=== PATIENT | female | born 1995 ===

== ENCOUNTER 2017-02-16 11:57 | Emergency (ER) | payer MEDICAID, OTHER ==
[2017-02-16 12:09] VITALS: BP 139/89; PULSE 85; RESP 18; TEMP 97; O2SAT 98
--- NOTE | 2017-02-16 13:06 | ED PDOC ---
HPI: General Adult Time Seen by Provider: 02/16/17 12:14 Chief Complaint (Nursing): GI Problem Chief Complaint (Provider): GI Problem History Per: Patient History/Exam Limitations: no limitations Onset/Duration Of Symptoms: Days (x2 years), Worse Since (x2 weeks ago) Have you had recent travel within the past 21 days to any of the following countries: [place], [place], [place] or [place]?: No Current Symptoms Are (Timing): Still Present Severity: Moderate Additional Complaint(s): Izzy Laguerre is a 21 year old female, with no pertinent past medical history , who presents to the emergency department with complaints that body has never gotten used to her control implant, Nexplanon, that the patient has been experiencing for the past 2 years; however, her symptoms worsened 2 weeks ago, prompting her visit to the ED. Patient reports stress greatly exacerbates her symptoms. Associated nausea (over the past 2 days), generalized weakness, a loss of appetite, an acne breakout, and anxiety are currently present. Denies a chance of . 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 PMD: none specified Past Medical History Reviewed: Historical Data, Nursing Documentation, Vital Signs Vital Signs: Last Vital Signs Temp 97 F L 02/16/17 12:05 Pulse 85 02/16/17 12:05 Resp 18 02/16/17 12:05 BP 139/89 02/16/17 12:05 Pulse Ox 98 02/16/17 13:20 - Medical History PMH: Gall Bladder Disease - Surgical History Surgical History: Cholecystectomy - Family History Family History: States: No Known Family Hx - Social History Current smoker - smoking cessation education provided: Yes (>10 cigarettes daily ) Alcohol: None Drugs: Denies - Home Medications Home Medications: Ambulatory Orders Medication Instructions Recorded No Known Home Med [No Known Home 04/17/15 Med] - Allergies Allergies/Adverse Reactions: Allergies Allergy/AdvReac Type Severity Reaction Status Date / Time No Known Allergies Allergy Verified 02/16/17 12:05 Review of Systems ROS Statement: Except As Marked, All Systems Reviewed And Found Negative Gastrointestinal: Positive for: Nausea Neurological: Positive for: Weakness Psych: Positive for: Anxiety Physical Exam - Reviewed Nursing Documentation Reviewed: Yes Vital Signs Reviewed: Yes - Physical Exam Appears: Positive for: Non-toxic, No Acute Distress Head Exam: Positive for: ATRAUMATIC, NORMOCEPHALIC Skin: Positive for: Normal Color, Warm, Dry Cardiovascular/Chest: Positive for: Regular Rate, Rhythm. Negative for: Murmur Respiratory: Positive for: Normal Breath Sounds. Negative for: Respiratory Distress Gastrointestinal/Abdominal: Positive for: Normal Exam, Soft. Negative for: Tenderness Extremity: Positive for: Normal ROM. Negative for: Tenderness Neurologic/Psych: Positive for: Alert, Oriented - ECG O2 Sat by Pulse Oximetry: 98 (RA) Pulse Ox Interpretation: Normal Medical Decision Making Medical Decision Makin:14 Initial Plan: Preg test (-), Request fro Contraceptive implant removal 12:30 Provider prompted patient to follow up with her OB-P[employer]ER [employer] [employer]INE OPERATOR. Scribe Attestation: Documented by Uriel Casas, acting as a scribe for NIKI Wolf. Provider Scribe Attestation: All medical record entries made by the Scribe were at my direction and personally dictated by me. I have reviewed the chart and agree that the record accurately reflects my personal performance of the history, physical exam, medical decision making, and the department course for this patient. I have also personally directed, reviewed, and agree with the discharge instructions and disposition. Disposition - Clinical Impression Clinical Impression: Encounter for Nexplanon removal - Patient ED Disposition Is Patient to be Admitted: No - Disposition Referrals: [facility] [Outside] [facility] [Outside] Disposition: Routine/Home Disposition Time: 13:21 Condition: STABLE Instructions: Removal of Contraceptive Implant (GEN) - POA Present On Arrival: None
== END 2017-02-16 13:29 | disposition home or self-care (01) ==
LOC: H.ER 11:57
DX: R53.1 Weakness (principal); Z30.49 Encounter for surveillance of other contraceptives; F41.9 Anxiety disorder, unspecified; F17.210 Nicotine dependence, cigarettes, uncomplicated

== ENCOUNTER 2017-05-14 04:07 | Emergency (ER) | payer OTHER ==
[2017-05-14 04:17] VITALS: BP 124/81; PULSE 85; RESP 16; TEMP 98; O2SAT 96
[2017-05-14] MEDS ORDERED: Sodium Chloride 0.9% 1,000 ML IV STA (04:35)
--- NOTE | 2017-05-14 04:38 | ED PDOC ---
HPI: Abdomen Time Seen by Provider: 05/14/17 04:19 Chief Complaint (Nursing): Abdominal Pain Chief Complaint (Provider): Abdominal pain, flank pain History Per: Patient History/Exam Limitations: no limitations Onset/Duration Of Symptoms: Hrs (1), Waxing/Waning Outside of [place] travel?: No Current Symptoms Are (Timing): Still Present Location Of Pain/Discomfort: LUQ, LLQ Quality Of Discomfort: Cramping, Pressure, "Pain" Associated Symptoms: Back Pain, Urinary Symptoms Additional History Per: Patient Additional Complaint(s): The patient is a 21yo female, with past medical history of kidney stones, cholecystectomy, presents to the ED for evaluation of left upper and lower quadrant abdominal pain, radiating to her left back. Patient reports the pain is waxing and waning and has been present for the past hour with associated 4x episodes of vomiting. Patient reports she experienced similar pain when she was diagnosed with a kidney stone in the past. She also reports a sensation of pressure with urination but denies any dysuria, hematuria. Patient denies any fever, chills, diarrhea and abnormal vaginal bleeding. Patient offers no additional medical complaints. Of note, patient reports she had an "IUD" removed 2 days ago and feels the pain may also be related to that. Upon further questioning, patient states she had an implant on her arm ( Nexplanon). PCP: Dr. Simmons Abnormal Vaginal Bleeding: No Past Medical History Reviewed: Historical Data, Nursing Documentation, Vital Signs Vital Signs: Last Vital Signs Temp 98.0 F 05/14/17 04:10 Pulse 85 05/14/17 04:10 Resp 16 05/14/17 04:10 BP 124/81 05/14/17 04:10 Pulse Ox 96 05/14/17 05:55 - Medical History PMH: Gall Bladder Disease, Kidney Stones - Surgical History Surgical History: Cholecystectomy - Family History Family History: States: Unknown Family Hx - Home Medications Home Medications: Ambulatory Orders Medication Instructions Recorded Ciprofloxacin HCl [Cipro] 500 mg PO BID #14 tablet 05/14/17 Tamsulosin [Flomax] 0.4 mg PO DAILY #14 cap 05/14/17 oxyCODONE/Acetaminophen [Percocet 1 ea PO Q6 PRN #15 tab 05/14/17 5/325 mg Tab] - Allergies Allergies/Adverse Reactions: Allergies Allergy/AdvReac Type Severity Reaction Status Date / Time No Known Allergies Allergy Verified 02/16/17 12:05 Review of Systems ROS Statement: Except As Marked, All Systems Reviewed And Found Negative Constitutional: Negative for: Fever, Chills Gastrointestinal: Positive for: Nausea, Vomiting, Abdominal Pain. Negative for : Diarrhea Genitourinary Female: Positive for: Other (pressure). Negative for: Dysuria, Frequency, Hematuria, Vaginal Bleeding Musculoskeletal: Positive for: Back Pain Physical Exam - Reviewed Nursing Documentation Reviewed: Yes Vital Signs Reviewed: Yes - Physical Exam Appears: Positive for: Non-toxic, Uncomfortable Head Exam: Positive for: ATRAUMATIC, NORMAL INSPECTION, NORMOCEPHALIC Skin: Positive for: Normal Color, Warm Eye Exam: Positive for: Normal appearance Neck: Positive for: Normal, Supple Cardiovascular/Chest: Positive for: Regular Rate, Rhythm Respiratory: Positive for: Normal Breath Sounds. Negative for: Respiratory Distress Gastrointestinal/Abdominal: Positive for: Soft, Tenderness (left upper and lower quadrant tenderness). Negative for: Mass, Guarding, Rebound Back: Positive for: L CVA Tenderness Extremity: Negative for: Deformity, Swelling Neurologic/Psych: Positive for: Alert, Oriented - Laboratory Results Result Diagrams: 05/14/17 04:42 05/14/17 04:42 - ECG O2 Sat by Pulse Oximetry: 96 - Progress Re-evaluation Time: 05:30 Condition: Re-examined, Improved Medical Decision Making Medical Decision Making: Time: 0435 Impression: Flank pain, left lower quadrant pain Differential: Renal colic, UTI, ovarian cyst, other causes considered but not listed Plan: * CT AP w/o contrast * Labs * Toradol 30 mg IV * Zofran 4 mg IV * IV Fluids * Reassess Time: 0534 CT AP IMPRESSION: 1. LEFT mid ureteral calculus with mild hydroureteronephrosis. 2. Incidental/non-acute findings are described above. Scribe Attestation: Documented by Carli Mccarty, acting as a scribe for Nikhil Belle MD. Provider Scribe Attestation: All medical record entries made by the Scribe were at my direction and personally dictated by me. I have reviewed the chart and agree that the record accurately reflects my personal performance of the history, physical exam, medical decision making, and the department course for this patient. I have also personally directed, reviewed, and agree with the discharge instructions and disposition. Disposition - Clinical Impression Clinical Impression: Ureteral calculus, right - Patient ED Disposition Is Patient to be Admitted: No Doctor Will See Patient In The: Office Counseled Patient/Family Regarding: Studies Performed, Diagnosis, Need For Followup - Disposition Referrals: River Simmons Jr., MD [Primary Care Provider] - Arnaldo Yang MD [Medical Doctor] - Disposition: Routine/Home Disposition Time: 05:49 Condition: GOOD Additional Instructions: Return for worsening. Take medications as instructed. Follow up with your PCP 2- 3 days. Prescriptions: Ciprofloxacin HCl [Cipro] 500 mg PO BID #14 tablet oxyCODONE/Acetaminophen [Percocet 5/325 mg Tab] 1 ea PO Q6 PRN #15 tab PRN Reason: Pain, Severe (8-10) Tamsulosin [Flomax] 0.4 mg PO DAILY #14 cap Instructions: Kidney Stones (ED), Renal Colic (ED) Forms: [facility] ED School/Work Excuse
[2017-05-14 04:46] LABS: BASO # 0.1 K/uL (0.0-0.2); EOS # 0.2 K/uL (0.0-0.7); EOS % 2.1 % (0.0-4.0); HEMOGLOBIN 14.1 g/dL (12.0-16.0); LYMPH # 2.1 K/uL (1.0-4.3); LYMPH % 23.1 % (20.0-40.0); MEAN CELL VOLUME 90.1 fl (81.0-99.0); MEAN CORPUSCULAR HEMOGLOBIN 30.1 pg (27.0-31.0); MEAN CORPUSCULAR HGB CONC 33.4 g/dL (33.0-37.0); MEAN PLATELET VOLUME 8.6 fl (7.2-11.7); MONO # 0.6 K/uL (0.0-0.8); MONO % 6.4 % (0.0-10.0); NEUT # 6.1 K/uL (1.8-7.0); NEUT % 67.4 % (50.0-75.0); RBC 4.68 Mil/uL (3.80-5.20); RED CELL DISTRIBUTION WIDTH 12.9 % (11.5-14.5)
[2017-05-14 04:53] LABS: BLOOD UREA NITROGEN 18 mg/dl (7-17); CALCIUM 9.5 mg/dL (8.4-10.2); GFR AFRICAN-AMERICAN > 60; GFR NON-AFRICAN AMERICAN > 60
--- NOTE | 2017-05-14 05:15 | CT ---
EXAM: CT Abdomen and Pelvis Without Intravenous Contrast CLINICAL HISTORY: 21 years old, female; Pain; Abdominal pain; Flank; Left; Prior surgery; Surgery date: 6+ months; Surgery type: Cholecystectomy; Additional info: Left flank pain TECHNIQUE: Axial computed tomography images of the abdomen and pelvis without intravenous contrast. This CT exam was performed using one or more of the following dose reduction techniques: automated exposure control, adjustment of the mA and/or kV according to patient size, and/or use of iterative reconstruction technique. Coronal and sagittal reformatted images were created and reviewed. COMPARISON: No relevant prior studies available. FINDINGS: Lower thorax: No acute findings. ABDOMEN: Liver: Unremarkable. Gallbladder and bile ducts: Cholecystectomy. No ductal dilation. Pancreas: Unremarkable. No ductal dilation. Spleen: No splenomegaly. Adrenals: No mass. Kidneys and ureters: No renal calculi. Mild pelvocaliectasis of LEFT kidney. Mildly dilated LEFT proximal to mid ureter. 0.6 x 0.4 x 0.3 cm calculus within LEFT mid ureter. Stomach and bowel: Segmental areas of underdistention of colon. No definite mural thickening. No obstruction. Appendix: Normal caliber. No inflammation. PELVIS: Bladder: Unremarkable. No stones. Reproductive: Unremarkable as visualized. ABDOMEN and PELVIS: Intraperitoneal space: No significant fluid collection. No free air. Bones/joints: No acute fracture. Soft tissues: Tiny umbilical hernia containing fat. Vasculature: Retroaortic LEFT renal vein. No aneurysm. Lymph nodes: No pathologically enlarged lymph nodes. IMPRESSION: 1. LEFT mid ureteral calculus with mild hydroureteronephrosis. 2. Incidental/non-acute findings are described above.
== END 2017-05-14 05:59 | disposition home or self-care (01) ==
LOC: H.ER 04:07
DX: N20.1 Calculus of ureter (principal); Z90.49 Acquired absence of other specified parts of digestive tract

== ENCOUNTER 2017-06-27 12:07 | Emergency (ER) | payer OTHER ==
[2017-06-27 12:25] VITALS: BP 122/86; PULSE 97; RESP 18; TEMP 98.9; O2SAT 99
[2017-06-27] MEDS ORDERED: Sodium Chloride 0.9% 1,000 ML IV STA (12:49)
--- NOTE | 2017-06-27 12:53 | ED PDOC ---
HPI: Female Pain Time Seen by Provider: 06/27/17 12:39 Chief Complaint (Nursing): Female Genitourinary Chief Complaint (Provider): renal colic History Per: Patient History/Exam Limitations: no limitations Additional Complaint(s): 21yo F in ED for eval of LLQ pain radiating to back, urinary bladder fullness with trickling of urine x couple of hours, however pt admits to hx of renal stones about 1 month ago-was told she would pass it and thought she did since she a a period of no pain. pt denies vomiting fever chills hemturia malasie. Past Medical History Reviewed: Historical Data, Nursing Documentation, Vital Signs Vital Signs: Last Vital Signs Temp 98.9 F 06/27/17 12:22 Pulse 97 H 06/27/17 12:22 Resp 18 06/27/17 12:22 BP 122/86 06/27/17 12:22 Pulse Ox 99 06/27/17 12:22 - Medical History PMH: Gall Bladder Disease, Kidney Stones - Surgical History Surgical History: Cholecystectomy - Family History Family History: States: Unknown Family Hx - Home Medications Home Medications: Ambulatory Orders Medication Instructions Recorded Ciprofloxacin HCl [Cipro] 500 mg PO BID #14 tablet 05/14/17 Tamsulosin [Flomax] 0.4 mg PO DAILY #14 cap 05/14/17 oxyCODONE/Acetaminophen [Percocet 1 ea PO Q6 PRN #15 tab 05/14/17 5/325 mg Tab] Acetaminophen/Oxycodone Hydr 1 tab PO TID PRN #12 tab 06/27/17 [Oxycodone and Acetaminophen 325 mg-2.5 mg] Nitrofurantoin Macrocrystals 100 mg PO BID #14 cap 06/27/17 [Macrobid] Tamsulosin HCl [Flomax] 0.4 mg PO DAILY #12 cap.er.24h 06/27/17 - Allergies Allergies/Adverse Reactions: Allergies Allergy/AdvReac Type Severity Reaction Status Date / Time No Known Allergies Allergy Verified 02/16/17 12:05 Review of Systems ROS Statement: Except As Marked, All Systems Reviewed And Found Negative Constitutional: Negative for: Fever, Chills, Weakness, Malaise Gastrointestinal: Positive for: Abdominal Pain. Negative for: Nausea, Vomiting Genitourinary Female: Positive for: Dysuria. Negative for: Hematuria, Vaginal Discharge, Vaginal Bleeding, Pelvic Pain Physical Exam - Reviewed Nursing Documentation Reviewed: Yes Vital Signs Reviewed: Yes - Physical Exam Appears: Positive for: Well, Non-toxic, No Acute Distress Skin: Positive for: Normal Color, Warm, DRY Cardiovascular/Chest: Positive for: Regular Rate, Rhythm Respiratory: Positive for: CNT, Normal Breath Sounds Gastrointestinal/Abdominal: Positive for: Normal Exam, Bowel Sounds, Soft, Tenderness (LLQ ternderness. ) Back: Negative for: L CVA Tenderness, R CVA Tenderness Extremity: Positive for: Normal ROM Neurologic/Psych: Positive for: Alert, Oriented - Laboratory Results Result Diagrams: 06/27/17 13:00 06/27/17 13:00 - ECG O2 Sat by Pulse Oximetry: 99 - Progress ED Course And Treament: will get CT scan of abd/pelvis r/o renal stone. Medical Decision Making Medical Decision Making: Renal stone is moving further. pt reassessed and no longer in pain. PT advised since renal stone is moving further out of body form mid ureter to UVJ and without WBC, fever, severe intractable pain that pt can f.u with urology outpt d/c on abx, flomax and pain control. Disposition - Clinical Impression Clinical Impression: Renal stone - Patient ED Disposition Is Patient to be Admitted: No Counseled Patient/Family Regarding: Studies Performed, Diagnosis, Need For Followup, Rx Given - Disposition Referrals: [facility] [Outside] Lyle Burns MD [Medical Doctor] - Geo Leigh Jr., MD [Staff Provider] - Disposition: Routine/Home Disposition Time: 17:17 Condition: STABLE Additional Instructions: it is imperative that you see a urologist. Prescriptions: Acetaminophen/Oxycodone Hydr [Oxycodone and Acetaminophen 325 mg-2.5 mg] 1 tab PO TID PRN #12 tab PRN Reason: Pain, Severe (8-10) Nitrofurantoin Macrocrystals [Macrobid] 100 mg PO BID #14 cap Tamsulosin HCl [Flomax] 0.4 mg PO DAILY #12 cap.er.24h Instructions: Kidney Stones (ED) Forms: [facility] ([place]enian), [facility] ED School/Work Excuse
[2017-06-27 13:11] LABS: BASO # 0.1 K/uL (0.0-0.2); BASO % 0.9 % (0.0-2.0); EOS # 0.1 K/uL (0.0-0.7); EOS % 1.5 % (0.0-4.0); HEMATOCRIT 42.7 % (34.0-47.0); LYMPH # 2.9 K/uL (1.0-4.3); LYMPH % 34.5 % (20.0-40.0); MEAN CELL VOLUME 90.3 fl (81.0-99.0); MEAN CORPUSCULAR HGB CONC 33.2 g/dL (33.0-37.0); MEAN PLATELET VOLUME 9.1 fl (7.2-11.7); MONO # 0.6 K/uL (0.0-0.8); MONO % 6.5 % (0.0-10.0); NEUT # 4.8 K/uL (1.8-7.0); NEUT % 56.6 % (50.0-75.0); RED CELL DISTRIBUTION WIDTH 12.5 % (11.5-14.5); WHITE BLOOD COUNT 8.5 K/uL (4.8-10.8)
[2017-06-27 13:19] LABS: ALB/GLOB RATIO 1.5 (1.0-2.1); ALKALINE PHOSPHATASE 77 U/L (38-126); ALT/SGPT 40 U/L (9-52); AST/SGOT 20 U/L (14-36); BILIRUBIN,TOTAL 0.8 mg/dl (0.2-1.3); BLOOD UREA NITROGEN 12 mg/dl (7-17); CARBON DIOXIDE 27 mmol/L (22-30); CHLORIDE 103 mmol/L (98-107); GFR AFRICAN-AMERICAN > 60; GLUCOSE,RANDOM 87 mg/dL (65-105); POTASSIUM 3.8 MMOL/L (3.6-5.0); SODIUM 140 mmol/l (132-148); TOTAL PROTEIN 7.7 G/DL (6.3-8.2)
[2017-06-27 13:22] LABS: RBC URINE 76 /hpf (0-3); URINE BILIRUBIN NEGATIVE (NEGATIVE); URINE BLOOD SMALL (NEGATIVE); URINE COLOR YELLOW (YELLOW); URINE GLUCOSE (UA) NEG (Normal); URINE KETONE NEGATIVE (NEGATIVE); URINE LEUKOCYTE ESTERASE NEG Leu/uL (Negative); URINE PROTEIN NEGATIVE (NEGATIVE); WBC URINE 1 /hpf (0-5)
--- NOTE | 2017-06-27 16:45 | CT ---
PROCEDURE: CT abdomen pelvis dated 06/27/2017. HISTORY: LLQ pain radiatiting to back COMPARISON: Comparison made with prior study 05/14/2017 TECHNIQUE: Contiguous axial images of the abdomen and pelvis performed without oral or intravenous contrast material coronal and sagittal reformats l and Sagittal reformats generated. Radiation dose: Total exam DLP = 1138.12 mGy-cm. This CT exam was performed using one or more of the following dose reduction techniques: Automated exposure control, adjustment of the mA and/or kV according to patient size, and/or use of iterative reconstruction technique. FINDINGS: LOWER THORAX: Lung bases clear. No infiltrate effusion or basilar pneumothorax. Heart size normal. No significant pericardial effusion. Tiny hiatal hernia. LIVER: Liver exhibits normal size measuring approximately 17 cm in CC dimension. No obvious hepatic mass or collection. GALLBLADDER AND BILE DUCTS: Again noted are changes of cholecystectomy with metallic clips in the gallbladder fossa PANCREAS: . Pancreas appears grossly unremarkable without mass collection or calcification. SPLEEN: Spleen exhibits normal size and attenuation pattern without mass collection or calcification. ADRENALS: No adrenal lesions. KIDNEYS AND URETERS: Re- demonstrated is mild left-sided hydronephrosis secondary to an approximately 4.85 mm elliptical shaped calcification in the left UVJ region. This could represent migration of the previously noted mid ureteral calculus on prior study. Clinical correlation recommended. BLADDER: Urinary bladder appears incompletely distended. No evidence of intraluminal urinary bladder calculi. REPRODUCTIVE: Uterus appears unremarkable. Small calcified pelvic phlebolith adjacent to the of left lateral border of the uterus. APPENDIX: Normal-appearing appendix best seen on axial image number [id number]. No periappendiceal inflammatory changes. BOWEL: Evaluation of the bowel is limited due to its the lack of oral contrast. Stomach is distended with food debris liquid and air. Visualized loops of small bowel exhibit normal contour and caliber. No evidence of acute mechanical small bowel obstruction. Moderate amount of stool is seen throughout the ascending colon suggesting mild fecal retention. The no abnormal mural wall thickening. PERITONEUM: Unremarkable. No fluid collection. No free air. Small fat containing umbilical hernia. LYMPH NODES: Unremarkable. No enlarged lymph nodes. VASCULATURE: No evidence of abdominal aortic or iliac artery aneurysms. BONES: Osseous structures appear unremarkable OTHER FINDINGS: None. IMPRESSION: There is an approximately 4.85 mm calculus of within the left UVJ region with mild left-sided hydronephrosis. Status post cholecystectomy. See above discussion for additional details and findings.
== END 2017-06-27 17:36 | disposition home or self-care (01) ==
LOC: H.ER 12:07
DX: N20.0 Calculus of kidney (principal)
CPT/HCPCS: 74176; 80053; 81003; 81025; 85025; 96374; 99285; J1885; J7040

== ENCOUNTER 2017-11-16 08:46 | Emergency (ER) | payer OTHER ==
[2017-11-16 08:56] VITALS: BP 134/78; PULSE 80; TEMP 97; O2SAT 100
[2017-11-16 10:31] LABS: BASO % 0.6 % (0.0-2.0); EOS # 0.1 K/uL (0.0-0.7); EOS % 1.9 % (0.0-4.0); HEMOGLOBIN 14.4 g/dL (12.0-16.0); LYMPH # 1.9 K/uL (1.0-4.3); LYMPH % 24.7 % (20.0-40.0); MEAN CELL VOLUME 89.3 fl (81.0-99.0); MEAN CORPUSCULAR HEMOGLOBIN 30.2 pg (27.0-31.0); MEAN CORPUSCULAR HGB CONC 33.8 g/dL (33.0-37.0); MEAN PLATELET VOLUME 8.3 fl (7.2-11.7); MONO # 0.6 K/uL (0.0-0.8); MONO % 7.2 % (0.0-10.0); NEUT % 65.6 % (50.0-75.0); NRBC % 0.2 % (0.0-0.0); RBC 4.77 Mil/uL (3.80-5.20); RED CELL DISTRIBUTION WIDTH 12.9 % (11.5-14.5); WHITE BLOOD COUNT 7.6 K/uL (4.8-10.8)
[2017-11-16 10:50] LABS: ALB/GLOB RATIO 1.3 (1.0-2.1); ALBUMIN 4.3 g/dL (3.5-5.0); ALT/SGPT 28 U/L (9-52); AST/SGOT 19 U/L (14-36); BLOOD UREA NITROGEN 10 mg/dl (7-17); CALCIUM 9.4 mg/dL (8.4-10.2); GFR AFRICAN-AMERICAN > 60; GFR NON-AFRICAN AMERICAN > 60
--- NOTE | 2017-11-16 11:49 | US ---
PROCEDURE: Ultrasound of the Kidneys HISTORY: b/l flank pain hx renal stones COMPARISON: Abdomen and pelvis CT with contrast 08/31/2017.. TECHNIQUE: Sonogram of the kidneys. FINDINGS: RIGHT KIDNEY: Measures: 10.2 x 3.2 x 5.5 cm. Normal in size, contour and echogenicity. No stone, solid mass lesion or hydronephrosis visualized. LEFT KIDNEY: Measures: 10.7 x 5.7 x 5.3 cm. Normal in size, contour and echogenicity. No stone, solid mass lesion or hydronephrosis visualized. OTHER FINDINGS: The visualized abdominal aorta appears patent. IMPRESSION: Unremarkable renal sonogram.
--- NOTE | 2017-11-16 11:56 | US ---
HISTORY: early preg, pelvic pain ; last menstrual period is reported indicating an estimated gestational age of 5 weeks 3 days. COMPARISON: None available. TECHNIQUE: Transvaginal ultrasound was performed with longitudinal and transverse images submitted for interpretation. FINDINGS: UTERUS: Measures 8.5 x 3.5 x 4.6 cm. Uterus is anteverted and appears grossly nonfocal. No fibroid or other mass lesion seen. ENDOMETRIUM: Measures 8.0 mm in diameter. A fluid collection with hyperechoic peripheral rim is appreciated, potentially posterior to the endometrial cavity in the superficial fundal myometrium. It measures 0.4 x 0.4 x 0.3 cm with a mean diameter is 0.36 cm. No pole is seen within this structure with the endometrium unremarkable. Consider potential early intrauterine gestation nevertheless. Failure of gestation is the differential diagnosis with or without a cystic submucous lesion such is a degenerated myoma. CERVIX: Few nabothian cyst in the cervix posteriorly, which measures 4.3 cm length. Closed internal os noted. RIGHT OVARY: Not identified. No suspicious adnexal mass or fluid collection appreciable. LEFT OVARY: Measures 2.5 x 2.3 x 2.3 cm. No solid mass. Normal flow. FREE FLUID: No significant free fluid noted. OTHER FINDINGS: None. IMPRESSION: A cystic focus only 4 mm greatest dimension is identified posterior to the mid endometrium possibly within myometrium. Of other intrauterine gestation is not identified at this time. This may represent a small degenerated myoma. Consider early nonvisualized intrauterine gestation versus failure of gestation. Clinical correlation and one-week sonographic follow-up is advised. Unremarkable left adnexal heart. Right ovary not identified.
--- NOTE | 2017-11-16 12:52 | ED PDOC ---
HPI: Abdomen Time Seen by Provider: 11/16/17 09:12 Chief Complaint (Nursing): Abdominal Pain Chief Complaint (Provider): pelvic pain History Per: Patient History/Exam Limitations: no limitations Onset/Duration Of Symptoms: Days (3), Gradual Location Of Pain/Discomfort: Other (pelvic) Quality Of Discomfort: Cramping Associated Symptoms: Nausea. denies: Fever, Chills, Vomiting, Diarrhea, Loss Of Appetite, Urinary Symptoms Exacerbating Factors: None Alleviating Factors: None Additional Complaint(s): 22yo female c.o pelvic pain for several days, denies vaginal bleeding, fever, urinary symptoms or vaginal discharge. Denies concern for STDs. Denies syncope , weakness or dizziness. States had a kidney stone in the past and wants to make sure not return of renal colic although denies flank pain or hematuria. LMP is irregular, shes not sure when last period was, prior was on OCP. Unknown status. Abnormal Vaginal Bleeding: No Past Medical History Reviewed: Historical Data, Nursing Documentation, Vital Signs Vital Signs: Last Vital Signs Temp 97 F L 11/16/17 08:56 Pulse 80 11/16/17 08:56 Resp BP 134/78 11/16/17 08:56 Pulse Ox 100 11/16/17 08:56 - Medical History PMH: Gall Bladder Disease, Kidney Stones - Surgical History Surgical History: Cholecystectomy - Family History Family History: States: Unknown Family Hx - Living Arrangements Living Arrangements: With Family - Social History Current smoker - smoking cessation education provided: No (quit) - Home Medications Home Medications: Ambulatory Orders Medication Instructions Recorded Ciprofloxacin HCl [Cipro] 500 mg PO BID #14 tablet 05/14/17 Tamsulosin [Flomax] 0.4 mg PO DAILY #14 cap 05/14/17 oxyCODONE/Acetaminophen [Percocet 1 ea PO Q6 PRN #15 tab 05/14/17 5/325 mg Tab] Acetaminophen/Oxycodone Hydr 1 tab PO TID PRN #12 tab 06/27/17 [Oxycodone and Acetaminophen 325 mg-2.5 mg] Nitrofurantoin Macrocrystals 100 mg PO BID #14 cap 06/27/17 [Macrobid] Tamsulosin HCl [Flomax] 0.4 mg PO DAILY #12 cap.er.24h 06/27/17 Ibuprofen [Motrin Tab] 600 mg PO Q8 PRN #30 tab 08/31/17 traMADol [Ultram] 50 mg PO TID PRN #10 tab 08/31/17 - Allergies Allergies/Adverse Reactions: Allergies Allergy/AdvReac Type Severity Reaction Status Date / Time No Known Allergies Allergy Verified 11/16/17 09:06 Review of Systems ROS Statement: Except As Marked, All Systems Reviewed And Found Negative Constitutional: Negative for: Fever, Chills Cardiovascular: Negative for: Chest Pain, Palpitations Gastrointestinal: Positive for: Nausea, Abdominal Pain. Negative for: Vomiting Genitourinary Female: Positive for: Pelvic Pain. Negative for: Dysuria, Frequency, Hematuria, Vaginal Discharge, Vaginal Bleeding Musculoskeletal: Negative for: Back Pain Skin: Negative for: Rash, Lesions, Jaundice Neurological: Negative for: Weakness, Numbness, Dizziness Physical Exam - Reviewed Nursing Documentation Reviewed: Yes Vital Signs Reviewed: Yes - Physical Exam Appears: Positive for: Well, Non-toxic, No Acute Distress Head Exam: Positive for: ATRAUMATIC, NORMAL INSPECTION, NORMOCEPHALIC Skin: Positive for: Normal Color, Warm, DRY Eye Exam: Positive for: EOMI, Normal appearance, PERRL ENT: Positive for: Normal ENT Inspection Neck: Positive for: Normal, Painless ROM Cardiovascular/Chest: Positive for: Regular Rate, Rhythm Respiratory: Positive for: CNT, Normal Breath Sounds Gastrointestinal/Abdominal: Positive for: Normal Exam, Bowel Sounds, Soft. Negative for: Tenderness, Guarding Back: Positive for: Normal Inspection. Negative for: L CVA Tenderness, R CVA Tenderness Extremity: Positive for: Normal ROM Neurologic/Psych: Positive for: Alert, Oriented. Negative for: Motor/Sensory Deficits - Laboratory Results Result Diagrams: 11/16/17 10:26 11/16/17 10:26 - ECG O2 Sat by Pulse Oximetry: 100 Medical Decision Making Medical Decision Making: + urine workup for ectopic initiated HCG approx 315, Hgb normal US: Accession No. : [id number] Patient Name / ID : BA BRUNO / [id number] Exam Date : 11/16/2017 10:41:26 ( Approved ) Study Comment : Sex / Age : F / 22Y Creator : Phillip Friedman MD Dictator : Phillip Friedman MD Truck Rental Manager : Paper Gluing Operator : Phillip Friedman MD Approver2 : Report Date : 11/16/2017 11:54:37 My Comment : HISTORY: early preg, pelvic pain ; last menstrual period is reported indicating an estimated gestational age of 5 weeks 3 days. COMPARISON: None available. TECHNIQUE: Transvaginal ultrasound was performed with longitudinal and transverse images submitted for interpretation. FINDINGS: UTERUS: Measures 8.5 x 3.5 x 4.6 cm. Uterus is anteverted and appears grossly nonfocal. No fibroid or other mass lesion seen. ENDOMETRIUM: Measures 8.0 mm in diameter. A fluid collection with hyperechoic peripheral rim is appreciated, potentially posterior to the endometrial cavity in the superficial fundal myometrium. It measures 0.4 x 0.4 x 0.3 cm with a mean diameter is 0.36 cm. No pole is seen within this structure with the endometrium unremarkable. Consider potential early intrauterine gestation nevertheless. Failure of gestation is the differential diagnosis with or without a cystic submucous lesion such is a degenerated myoma. CERVIX: Few nabothian cyst in the cervix posteriorly, which measures 4.3 cm length. Closed internal os noted. RIGHT OVARY: Not identified. No suspicious adnexal mass or fluid collection appreciable. LEFT OVARY: Measures 2.5 x 2.3 x 2.3 cm. No solid mass. Normal flow. FREE FLUID: No significant free fluid noted. OTHER FINDINGS: None. IMPRESSION: A cystic focus only 4 mm greatest dimension is identified posterior to the mid endometrium possibly within myometrium. Of other intrauterine gestation is not identified at this time. This may represent a small degenerated myoma. Consider early nonvisualized intrauterine gestation versus failure of gestation. Clinical correlation and one-week sonographic follow-up is advised. Unremarkable left adnexal heart. Right ovary not identified. Instructed on all findings and concern for early vs early complication of vs ectopic vs threatened Ab. Rec tylenol at home, indications for return to ER discussed and pelvic rest recommended. Disposition - Clinical Impression Clinical Impression: , Threatened miscarriage - Patient ED Disposition Is Patient to be Admitted: No Counseled Patient/Family Regarding: Studies Performed, Diagnosis, Need For Followup, Rx Given - Disposition Referrals: Phillip Mariano DO [Staff Provider] - Disposition Time: 12:55 Condition: STABLE Additional Instructions: Recommend followup with OUTPATIENT DIETITIAN doctor in 2-3 days. Your hormone level today was 315 Your ultrasound did not demonstrate a definitive , but its possibly too early. This does not rule-out complications or ectopic . Return to ER for any bleeding, pain or new or changing symptoms. Use only tylenol for pain as directed.
== END 2017-11-16 13:58 | disposition home or self-care (01) ==
LOC: H.ER 08:46
DX: O20.0 Threatened abortion (principal); Z3A.01 Less than 8 weeks gestation of pregnancy; O26.891 Other specified pregnancy related conditions, first trimester

== ENCOUNTER 2017-11-20 13:18 | Emergency (ER) | payer OTHER ==
--- NOTE | 2017-11-20 15:29 | ED PDOC ---
HPI: Female Pain Time Seen by Provider: 11/20/17 13:37 Chief Complaint (Nursing): Female Genitourinary Chief Complaint (Provider): Repeat Beta History Per: Patient Additional Complaint(s): 22yo female, no PMH, presents to ED in order to undergo repeat beta. No abdominal pain, cramping, vaginal bleeding Pt was found to be on Thursday when in the ED for pelvic cramping. LMP Sep, Beta on Thursday 315. Pt concerned because she followed up with an Air[facility] today and provider told her she is inconsistent with dates and likely having a miscarraige. US IMPRESSION on 12/17: A cystic focus only 4 mm greatest dimension is identified posterior to the mid endometrium possibly within myometrium. Of other intrauterine gestation is not identified at this time. This may represent a small degenerated myoma. Consider early nonvisualized intrauterine gestation versus failure of gestation. Clinical correlation and one-week sonographic follow-up is advised. Unremarkable left adnexal heart. Right ovary not identified. Past Medical History Reviewed: Nursing Documentation, Vital Signs Vital Signs: Last Vital Signs Temp 98.7 F 11/20/17 13:35 Pulse 76 11/20/17 13:35 Resp 16 11/20/17 13:35 BP 148/83 11/20/17 13:35 Pulse Ox 99 11/20/17 13:35 - Medical History PMH: Gall Bladder Disease, Kidney Stones - Surgical History Surgical History: Cholecystectomy - Family History Family History: States: Unknown Family Hx - Home Medications Home Medications: Ambulatory Orders Medication Instructions Recorded Ciprofloxacin HCl [Cipro] 500 mg PO BID #14 tablet 05/14/17 Tamsulosin [Flomax] 0.4 mg PO DAILY #14 cap 05/14/17 oxyCODONE/Acetaminophen [Percocet 1 ea PO Q6 PRN #15 tab 05/14/17 5/325 mg Tab] Acetaminophen/Oxycodone Hydr 1 tab PO TID PRN #12 tab 06/27/17 [Oxycodone and Acetaminophen 325 mg-2.5 mg] Nitrofurantoin Macrocrystals 100 mg PO BID #14 cap 06/27/17 [Macrobid] Tamsulosin HCl [Flomax] 0.4 mg PO DAILY #12 cap.er.24h 06/27/17 Ibuprofen [Motrin Tab] 600 mg PO Q8 PRN #30 tab 08/31/17 traMADol [Ultram] 50 mg PO TID PRN #10 tab 08/31/17 Multivit/Folic Acid/I 1 tab PO DAILY #30 tab 11/20/17 [ Plus] - Allergies Allergies/Adverse Reactions: Allergies Allergy/AdvReac Type Severity Reaction Status Date / Time No Known Allergies Allergy Verified 11/20/17 13:35 Review of Systems ROS Statement: Except As Marked, All Systems Reviewed And Found Negative Physical Exam - Reviewed Nursing Documentation Reviewed: Yes Vital Signs Reviewed: Yes - Physical Exam Appears: Positive for: Well, Non-toxic, No Acute Distress Head Exam: Positive for: ATRAUMATIC, NORMAL INSPECTION, NORMOCEPHALIC Skin: Positive for: Normal Color, Warm, DRY Eye Exam: Positive for: EOMI, Normal appearance, PERRL ENT: Positive for: Normal ENT Inspection Neck: Positive for: Normal, Painless ROM Cardiovascular/Chest: Positive for: Regular Rate, Rhythm Respiratory: Positive for: CNT, Normal Breath Sounds Gastrointestinal/Abdominal: Positive for: Normal Exam, Bowel Sounds, Soft Back: Positive for: Normal Inspection Extremity: Positive for: Normal ROM Neurologic/Psych: Positive for: Alert, Oriented - ECG O2 Sat by Pulse Oximetry: 99 Medical Decision Making Medical Decision Making: Beta 2095- Consistent with 5 weeks of and elevating appropriately no pain or bleeding . US offered to Pt, who declined. reports if her level was good she would like to go home and follow up with her OB now. Disposition - Clinical Impression Clinical Impression: - Patient ED Disposition Is Patient to be Admitted: No - Disposition Disposition: Routine/Home Disposition Time: 17:17 Condition: STABLE Forms: [employer] (Scottish)
[2017-11-20 17:07] VITALS: BP 128/78; PULSE 78; RESP 17; TEMP 97.6
[2017-11-20 17:12] VITALS: O2SAT 99
== END 2017-11-20 17:07 | disposition home or self-care (01) ==
LOC: H.ER 13:18
DX: Z33.1 Pregnant state, incidental (principal)

== ENCOUNTER 2017-11-29 14:23 | Emergency (ER) | payer OTHER ==
[2017-11-29 14:43] VITALS: BP 139/62; PULSE 87; RESP 18; TEMP 97; O2SAT 98
--- NOTE | 2017-11-29 15:16 | ED PDOC ---
HPI: Female Pain Time Seen by Provider: 11/29/17 14:44 Chief Complaint (Nursing): Female Genitourinary Chief Complaint (Provider): Vaginal spotting History Per: Patient History/Exam Limitations: no limitations Onset/Duration Of Symptoms: Days (today) Current Symptoms Are (Timing): Still Present Additional Complaint(s): Pt. with vaginal spotting after lifting a heavy box. Has pelvic cramping. No dysuria, weakness, headaches, dizziness. No back pain. Is preg. Past Medical History Reviewed: Nursing Documentation, Vital Signs Vital Signs: Last Vital Signs Temp 97 F L 11/29/17 14:37 Pulse 87 11/29/17 14:37 Resp 18 11/29/17 14:37 BP 139/62 11/29/17 14:37 Pulse Ox 98 11/29/17 14:37 - Medical History PMH: No Chronic Diseases - Surgical History Surgical History: Cholecystectomy - Family History Family History: States: Unknown Family Hx - Social History Current smoker - smoking cessation education provided: No Alcohol: None Drugs: Denies - Home Medications Home Medications: Ambulatory Orders Medication Instructions Recorded Ciprofloxacin HCl [Cipro] 500 mg PO BID #14 tablet 05/14/17 Tamsulosin [Flomax] 0.4 mg PO DAILY #14 cap 05/14/17 oxyCODONE/Acetaminophen [Percocet 1 ea PO Q6 PRN #15 tab 05/14/17 5/325 mg Tab] Acetaminophen/Oxycodone Hydr 1 tab PO TID PRN #12 tab 06/27/17 [Oxycodone and Acetaminophen 325 mg-2.5 mg] Nitrofurantoin Macrocrystals 100 mg PO BID #14 cap 06/27/17 [Macrobid] Tamsulosin HCl [Flomax] 0.4 mg PO DAILY #12 cap.er.24h 06/27/17 Ibuprofen [Motrin Tab] 600 mg PO Q8 PRN #30 tab 08/31/17 traMADol [Ultram] 50 mg PO TID PRN #10 tab 08/31/17 Multivit/Folic Acid/I 1 tab PO DAILY #30 tab 11/20/17 [ Plus] - Allergies Allergies/Adverse Reactions: Allergies Allergy/AdvReac Type Severity Reaction Status Date / Time No Known Allergies Allergy Verified 11/20/17 13:35 Review of Systems ROS Statement: Except As Marked, All Systems Reviewed And Found Negative Genitourinary Female: Positive for: Vaginal Bleeding, Pelvic Pain Physical Exam - Reviewed Nursing Documentation Reviewed: Yes Vital Signs Reviewed: Yes - Physical Exam Appears: Positive for: Non-toxic, No Acute Distress Head Exam: Positive for: ATRAUMATIC, NORMAL INSPECTION, NORMOCEPHALIC Skin: Positive for: Normal Color, Warm, DRY Eye Exam: Positive for: EOMI, Normal appearance, PERRL ENT: Positive for: Normal ENT Inspection Neck: Positive for: Normal, Painless ROM Cardiovascular/Chest: Positive for: Regular Rate, Rhythm Respiratory: Positive for: CNT, Normal Breath Sounds Gastrointestinal/Abdominal: Positive for: Normal Exam, Bowel Sounds, Soft. Negative for: Tenderness Back: Positive for: Normal Inspection. Negative for: L CVA Tenderness, R CVA Tenderness Extremity: Positive for: Normal ROM. Negative for: Tenderness, Pedal Edema Neurologic/Psych: Positive for: Alert, Oriented - Laboratory Results Result Diagrams: 11/29/17 15:27 11/29/17 15:27 Interpretation Of Abn Labs: a pos - ECG O2 Sat by Pulse Oximetry: 98 - Progress ED Course And Treament: 1637: Stable. AAOx3. Pain free. Tolerated PO. Fu with pcp. Disposition - Clinical Impression Clinical Impression: Threatened - Patient ED Disposition Is Patient to be Admitted: No Counseled Patient/Family Regarding: Studies Performed, Diagnosis, Need For Followup - Disposition [facility]17 Disposition: Routine/Home Disposition Time: 16:36 Condition: STABLE Additional Instructions: Return if not better in 3 days. Instructions: Threatened Miscarriage (ED) Forms: [employer] (Arabic)
[2017-11-29 15:31] LABS: BASO # 0.1 K/uL (0.0-0.2); BASO % 0.8 % (0.0-2.0); EOS # 0.2 K/uL (0.0-0.7); EOS % 1.8 % (0.0-4.0); HEMOGLOBIN 13.2 g/dL (12.0-16.0); LYMPH # 2.5 K/uL (1.0-4.3); LYMPH % 26.1 % (20.0-40.0); MEAN CELL VOLUME 89.8 fl (81.0-99.0); MEAN CORPUSCULAR HEMOGLOBIN 29.9 pg (27.0-31.0); MEAN CORPUSCULAR HGB CONC 33.3 g/dL (33.0-37.0); MEAN PLATELET VOLUME 8.3 fl (7.2-11.7); MONO # 0.6 K/uL (0.0-0.8); MONO % 6.3 % (0.0-10.0); NEUT # 6.1 K/uL (1.8-7.0); RBC 4.42 Mil/uL (3.80-5.20); RED CELL DISTRIBUTION WIDTH 12.5 % (11.5-14.5); WHITE BLOOD COUNT 9.5 K/uL (4.8-10.8)
[2017-11-29 15:41] LABS: ALB/GLOB RATIO 1.4 (1.0-2.1); ALBUMIN 4.2 g/dL (3.5-5.0); ALT/SGPT 25 U/L (9-52); AST/SGOT 18 U/L (14-36); BLOOD UREA NITROGEN 12 mg/dl (7-17); CALCIUM 9.2 mg/dL (8.4-10.2); GFR AFRICAN-AMERICAN > 60; GFR NON-AFRICAN AMERICAN > 60
--- NOTE | 2017-11-29 15:59 | US ---
PROCEDURE: OB Pelvic Ultrasound HISTORY: preg and pain LMP: 10/09/2017 COMPARISON: Pelvic ultrasound dated 04/17/2015. FINDINGS: UTERUS: Gestational sac: Single intrauterine gestation. Measures 1.9 cm compatible with estimated gestational age of 6 weeks, 2 days. Yolk sac: Measures 0.3 cm. pole: [place]-rump length measures 0.5 cm compatible with estimated gestational age of 6 weeks, 1 day. Heart rate: 159 bpm. age (Ultrasound estimated): 6 weeks, 2 days Jess-gestational hemorrhage: None. Date of delivery (Ultrasound estimated) : 07/23/2018 Uterus measures 8.3 x 3.0 x 5.3 cm. Anteverted. Normal in size and appearance. CERVIX: Measures 4.3 cm. Long and closed. No cervical abnormality seen. RIGHT OVARY: Not visualized. LEFT OVARY: Measures 2.6 x 2.0 x 2.1 cm. No solid mass. Normal flow. FREE FLUID: None. OTHER FINDINGS: None. IMPRESSION: Single viable intrauterine gestation with average ultrasound age 6 weeks, 2 days. heart rate 159 beats per minute
== END 2017-11-29 17:14 | disposition home or self-care (01) ==
LOC: H.ER 14:23
DX: O20.0 Threatened abortion (principal); Z3A.01 Less than 8 weeks gestation of pregnancy

== ENCOUNTER 2017-12-04 03:17 | Emergency (ER) | payer OTHER ==
[2017-12-04 03:36] VITALS: BP 121/79; PULSE 91; RESP 17; TEMP 98.7; O2SAT 100
--- NOTE | 2017-12-04 05:47 | ED PDOC ---
HPI: General Adult Time Seen by Provider: 12/04/17 04:16 Chief Complaint (Nursing): Flu-like Symptoms Chief Complaint (Provider): Flu-Like Symptoms History Per: Patient History/Exam Limitations: no limitations Onset/Duration Of Symptoms: Days (x2) Current Symptoms Are (Timing): Still Present Additional Complaint(s): 22 year old female presents to ED with complaints of flu-like symptoms x3 days and is currently 8 weeks , (+) fever, chills, body aches, cough, and nausea. Reports (-) chest pain, SOB, abdominal pain, vaginal bleeding, or urinary symptoms. PCP: None Past Medical History Reviewed: Historical Data, Nursing Documentation, Vital Signs Vital Signs: Last Vital Signs Temp 98.7 F 12/04/17 03:34 Pulse 91 H 12/04/17 03:34 Resp 17 12/04/17 03:34 BP 121/79 12/04/17 03:34 Pulse Ox 100 12/04/17 05:50 - Medical History PMH: Gall Bladder Disease, Kidney Stones Denies: No Chronic Diseases - Surgical History Surgical History: Cholecystectomy - Family History Family History: States: Unknown Family Hx - Living Arrangements Living Arrangements: With Family - Home Medications Home Medications: Ambulatory Orders Medication Instructions Recorded Ciprofloxacin HCl [Cipro] 500 mg PO BID #14 tablet 05/14/17 Tamsulosin [Flomax] 0.4 mg PO DAILY #14 cap 05/14/17 oxyCODONE/Acetaminophen [Percocet 1 ea PO Q6 PRN #15 tab 05/14/17 5/325 mg Tab] Acetaminophen/Oxycodone Hydr 1 tab PO TID PRN #12 tab 06/27/17 [Oxycodone and Acetaminophen 325 mg-2.5 mg] Nitrofurantoin Macrocrystals 100 mg PO BID #14 cap 06/27/17 [Macrobid] Tamsulosin HCl [Flomax] 0.4 mg PO DAILY #12 cap.er.24h 06/27/17 Ibuprofen [Motrin Tab] 600 mg PO Q8 PRN #30 tab 08/31/17 traMADol [Ultram] 50 mg PO TID PRN #10 tab 08/31/17 Multivit/Folic Acid/I 1 tab PO DAILY #30 tab 11/20/17 [ Plus] Metoclopramide HCl [Reglan] 10 mg PO QID PRN #20 tablet 12/04/17 - Allergies Allergies/Adverse Reactions: Allergies Allergy/AdvReac Type Severity Reaction Status Date / Time No Known Allergies Allergy Verified 11/20/17 13:35 Review of Systems ROS Statement: Except As Marked, All Systems Reviewed And Found Negative Constitutional: Positive for: Fever, Other ((+) body aches) Cardiovascular: Negative for: Chest Pain Respiratory: Positive for: Cough. Negative for: Shortness of Breath Gastrointestinal: Negative for: Abdominal Pain Genitourinary Female: Negative for: Dysuria, Frequency, Incontinence, Hematuria , Vaginal Bleeding Physical Exam - Reviewed Nursing Documentation Reviewed: Yes Vital Signs Reviewed: Yes - Physical Exam Appears: Positive for: Non-toxic, No Acute Distress Comments: GENERAL APPEARANCE: Patient is awake, alert, oriented x 3, in no acute distress. SKIN: Warm, dry; (-) cyanosis, (-) rash. (-) Decubitus Ulcer EYES: (-) conjunctival pallor, (-) scleral icterus, (-) conjunctival hemorrhage. ENMT: Mucous membranes moist. TMs: (-) erythema. Airway patent: (-) stridor. Pharynx: (-) erythema, (-) exudate. NECK: (-) tenderness, (-) stiffness, (-) meningismus, (-) lymphadenopathy. CHEST AND RESPIRATORY: (-) accessory muscle use. Lungs: (-) rales, (-) rhonchi, (-) wheezes, (-) rub; breath sounds equal bilaterally. HEART AND CARDIOVASCULAR: (-) irregularity; (-) murmur, (-) gallop, (-) rub. ABDOMEN AND GI: Soft; (-) tenderness, (-) guarding; (-) organomegaly; (-) mass ; (-) CVA tenderness. EXTREMITIES: (-) deformity; (-) cellulitis, (-) lymphangitis; (-) subungual hemorrhage; (-) edema. NEURO AND PSYCH: Mental status as above; (-) focal findings. - ECG O2 Sat by Pulse Oximetry: 100 (RA) Pulse Ox Interpretation: Normal Medical Decision Making Medical Decision Makin Initial plan: * Reglan 10mg PO * Acetaminophen 975mg PO 0530 Based on history and exam, plan will be for outpt f/u w/ Dx of viral illness, possible flu. Discussed diagnosis with patient and instructed her to take Tylenol over the counter for symptoms. Advised to follow up with primary care physician in 1-2 days without fail. Advised to take medication as prescribed. Return to the emergency room at any time for any new or worsening symptoms. Patient states she fully agrees with and understands discharge instructions. States that she agrees with the plan and disposition. Verbalized and repeated discharge instructions and plan. I have given the patient opportunity to ask any additional questions. Scribe Attestation: Documented by Daniela Tinoco acting as a scribe for Roselia Powers PA-C. Scribe Attestation: All medical record entries made by the Scribe were at my direction and personally dictated by me. I have reviewed the chart and agree that the record accurately reflects my personal performance of the history, physical exam, medical decision making, and the department course for this patient. I have also personally directed, reviewed, and agree with the discharge instructions and disposition. Disposition - Clinical Impression Clinical Impression: Viral illness - Patient ED Disposition Is Patient to be Admitted: No Counseled Patient/Family Regarding: Studies Performed, Diagnosis, Need For Followup, Rx Given - Disposition Disposition: Routine/Home Disposition Time: 05:30 Condition: STABLE Additional Instructions: Thank you for letting us take care of you today. You were treated for viral illness, possible influenza. The emergency medical care you received today was directed at your acute symptoms. If you were prescribed any medication, please fill it and take as directed. It may take several days for your symptoms to resolve. Return to the Emergency Department if your symptoms worsen, do not improve, or if you have any other problems. Please contact your doctor in 2 days for re-evaluation and follow up. Bring any paperwork you were given at discharge with you along with any medications you are taking to your follow up visit. Our treatment cannot replace ongoing medical care by a primary care provider (PCP) outside of the emergency department. Thank you for allowing the [facility] team to be part of your care today. 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
== END 2017-12-04 06:00 | disposition home or self-care (01) ==
LOC: H.ER 03:17
DX: B34.9 Viral infection, unspecified (principal); O98.511 Other viral diseases complicating pregnancy, first trimester; Z3A.08 8 weeks gestation of pregnancy

== ENCOUNTER 2018-05-10 10:00 | Emergency (ER) | payer OTHER ==
[2018-05-10 10:08] VITALS: O2SAT 97
[2018-05-10 10:10] VITALS: BMI 39.6
--- NOTE | 2018-05-10 11:32 | ED PDOC ---
HPI: General Adult Time Seen by Provider: 05/10/18 10:30 Chief Complaint (Nursing): Abdominal Pain Chief Complaint (Provider): 2-3 nights of hand going numb History Per: Patient History/Exam Limitations: no limitations Onset/Duration Of Symptoms: Days Have you had recent travel within the past 21 days to any of the following countries: [place], [place], [place] or [place]?: No Additional Complaint(s): 22 yo at 30 weeks gestation presents with bilateral hand numbness. Pt states it feels like when you have pins and needles. Pt states it happens mostly in the morning. Pt reports moving hands around and states it resolves. 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 Pt states it has happens occasionally at work. Pt denies headache, N/V. Pt reports feeling movement and no vaginal bleeding. Pt states she called her OB Dr. Martinez and the medical office receptionist assistant said he is not in the office today so to come to the ER for evaluation. Pt denies current symptoms. Past Medical History Reviewed: Historical Data, Nursing Documentation, Vital Signs Vital Signs: Last Vital Signs Temp 97 F L 05/10/18 10:06 Pulse 114 H 05/10/18 10:06 Resp BP 137/80 05/10/18 10:06 Pulse Ox 97 05/10/18 10:06 - Medical History PMH: Gall Bladder Disease, Kidney Stones - Surgical History Surgical History: Cholecystectomy - Family History Family History: States: Diabetes - Living Arrangements Living Arrangements: With Family - Social History Current smoker - smoking cessation education provided: No Alcohol: None Drugs: Denies - Immunization History Hx Influenza Vaccination: No Hx Pneumococcal Vaccination: No - Home Medications Home Medications: Ambulatory Orders Medication Instructions Recorded Multivit/Folic Acid/I 1 tab PO DAILY #30 tab 11/20/17 [ Plus] - Allergies Allergies/Adverse Reactions: Allergies Allergy/AdvReac Type Severity Reaction Status Date / Time No Known Allergies Allergy Verified 12/28/17 17:15 Review of Systems ROS Statement: Except As Marked, All Systems Reviewed And Found Negative Constitutional: Negative for: Fever Neurological: Positive for: Numbness, Other. Negative for: Weakness, Dizziness Physical Exam - Reviewed Nursing Documentation Reviewed: Yes Vital Signs Reviewed: Yes - Physical Exam Appears: Positive for: Well, Non-toxic, No Acute Distress Head Exam: Positive for: ATRAUMATIC, NORMAL INSPECTION, NORMOCEPHALIC Skin: Positive for: Normal Color, Warm, DRY Eye Exam: Positive for: Normal appearance, EOMI, PERRL ENT: Positive for: Normal ENT Inspection Neck: Positive for: Normal, Painless ROM Cardiovascular/Chest: Positive for: Regular Rate, Rhythm Respiratory: Positive for: Normal Breath Sounds. Negative for: Accessory Muscle Use, Respiratory Distress Back: Positive for: Normal Inspection Extremity: Positive for: Normal ROM Neurologic/Psych: Positive for: Alert, research assistant member II-XII, Oriented, Mood/Affect, Cerebellar Tests, Gait. Negative for: Motor/Sensory Deficits, Aphasia, Facial Droop - ECG O2 Sat by Pulse Oximetry: 97 Pulse Ox Interpretation: Normal Medical Decision Making Medical Decision Making: normal neuro exam. Dr. Martinez aware. Pt has appointment with him on 05/17/18. Disposition - Clinical Impression Clinical Impression: Carpal tunnel syndrome during - Patient ED Disposition Is Patient to be Admitted: No Counseled Patient/Family Regarding: Diagnosis, Need For Followup - Disposition Referrals: Keith Martinez MD [Staff Provider] - Disposition: Routine/Home Disposition Time: 11:38 Condition: GOOD
[2018-05-10 11:44] VITALS: BP 104/55; PULSE 84; TEMP 98.1
[2018-05-10 12:36] VITALS: RESP 18
== END 2018-05-10 12:30 | disposition home or self-care (01) ==
LOC: H.ER 10:00
DX: G56.03 Carpal tunnel syndrome, bilateral upper limbs (principal); O26.893 Other specified pregnancy related conditions, third trimester; Z3A.30 30 weeks gestation of pregnancy